=== PATIENT | female | born 2000 | race Two or more races ===

== ENCOUNTER 2024-11-14 13:44 | Emergency (ER) | payer OTHER ==
[~2024-11-14] VITALS: Ht 162.6 cm; Wt 41.7 kg
[2024-11-14] MEDS ORDERED: ACETAMINOPHEN ES 500 MG TABLET ONE (14:50)
[2024-11-14] MEDS ORDERED: IBUPROFEN 400 MG TABLET ONE (14:51)
[2024-11-14] MEDS: ACETAMINOPHEN ES 500 MG TABLET PO ONE (15:10)
[2024-11-14] MEDS: IBUPROFEN 400 MG TABLET PO ONE (15:12)
[2024-11-14] MEDS ORDERED: KETO10TA2 PO (16:52)
[2024-11-14] MEDS ORDERED: CYCL5TAB PO (16:52)
[2024-11-14 17:41] VITALS: BP 108/70; TEMP 98; O2SAT 100
== END 2024-11-14 17:42 | disposition home or self-care (01) ==
LOC: ER 13:51
DX: S13.4XXA Sprain of ligaments of cervical spine, initial encounter (principal); M54.50 Low back pain, unspecified; R51.9 Headache, unspecified; V43.62XA Car passenger injured in collision with other type car in traffic accident, initial encounter; Y93.89 Activity, other specified; Y92.488 Other paved roadways as the place of occurrence of the external cause; Y99.8 Other external cause status
CPT/HCPCS: 70450-TC; 84703-TC